=== PATIENT | female | born 1985 | race African-American/Black ===

== ENCOUNTER 2017-03-18 11:29 | Emergency (ER) | payer OTHER ==
[~2017-03-18] VITALS: Ht 160 cm; Wt 123.0 kg
[~2017-03-18 11:29] MED LIST: AF-MIGRAIN1 PO; ALDOMET250 MG OR; AMOXICILLIN500 MG PO; AUGMENTIN500 MG OR; AZITHROMYCIN250 MG PO; BACTRIM DS1 TAB PO; CHERATUSSIN PO; DIABETA2.5 MG OR; DIFLUCAN150 MG PO; DOXYCYCL HYC100 MG PO; FLONASE NASAL50 MCG; FLUCONAZOLE150 MG PO; KEFLEX500 MG OR; KLONOPIN1 MG PO; LUNESTA3 MG PO; METFORMIN500 M1 OR; METFORMIN500 M1 PO; MIRENA; MUCINEX D1 TAB OR; NAPROSYN500 MG PO; NO; NO MEDS; PHENTERMINE; PHENTERMINE37.5 M1 PO; PHENTERMINE37.5 MG PO; PRE-NATAL OR; PREDNISONE20 MG PO; PROMETHAZINE25 MG OR; ROBITUSSIN DM OR; TESSALON PER100 MG PO; VENTOLIN HFA IN; WATER PILL; ZPAK PO; [UNRECOGNIZED DRUG - REMARK]
[2017-03-18] MEDS ORDERED: OMEPRAZOLE10 MG PO (11:48)
[2017-03-18 15:13] VITALS: BP 165/81
== END 2017-03-18 15:26 | disposition home or self-care (01) | DRG 151 ==
LOC: ED 11:29
DX: R04.0 Epistaxis (principal)

== ENCOUNTER 2018-11-10 13:27 | Emergency (ER) | payer OTHER ==
[~2018-11-10] VITALS: Ht 160 cm; Wt 110.0 kg
[~2018-11-10 13:27] MED LIST changes: +OMEPRAZOLE10 MG PO
[2018-11-10 15:01] LABS: HEMATOCRIT 36.9 % (37.0-47.0); IMMATURE GRANULOCYTES 0.5 % (0.0-5.0); MEAN CELL VOLUME 84.8 fL CALC (80.0-100.0); MEAN CORPUSCULAR HGB 27.6 pG CALC (26.0-32.0); MEAN CORPUSCULAR HGB CONC 32.5 g/L CALC (32.0-36.0); NEUT# 9.62 thou/uL (2.00-7.15); RED BLOOD COUNT 4.35 mill/uL (4.20-5.60); RED CELL DISTRI WIDTH 13.6 % (11.5-15.5)
[2018-11-10 15:02] LABS: URINE BILIRUBIN - DIPSTICK NEGATIVE (NEGATIVE); URINE BLOOD DIPSTICK LARGE (NEGATIVE); URINE COLOR ORANGE; URINE GLUCOSE - DIPSTICK 250 mg/dL (NEGATIVE); URINE KETONE TRACE mg/dL (NEGATIVE); URINE LEUK ESTERASE TRACE (NEGATIVE); URINE PROTEIN - DIPSTICK 100 mg/dL (NEG-TRACE); URINE UROBILINOGEN - DIPSTICK >=8.0 E.U./dL (0.2)
[2018-11-10 15:05] LABS: URINE NITRITE - DIPSTICK POSITIVE (Negative)
[2018-11-10 15:13] LABS: URINE SQUAMOUS EPITHELIAL CELL MODERATE EPI/hpf (0-FEW)
[2018-11-10 15:25] LABS: ALBUMIN 4.3 g/dL (3.2-5.0); ALKALINE PHOSPHATASE 89 u/l (38-126); ANION GAP 10 (6-22 (CALC)); BILIRUBIN, TOTAL 0.4 mg/dL (0.0-1.4); BUN 8 mg/dL (7-17); BUN/CREATININE RATIO 11 (12-20 (CALC)); CARBON DIOXIDE 26 mmol/l (22-30); CHLORIDE 104 mmol/l (95-108); CREATININE 0.7 mg/dL (0.5-1.0); GFR > 60 ML/MIN (>=60 (CALC)); GFR FOR AFR.AMER. > 60 ML/MIN (>=60 (CALC)); POTASSIUM 3.5 mmol/l (3.5-5.1); SGOT/AST 24 u/l (14-36); SODIUM 137 mmol/l (137-146); TOTAL PROTEIN 7.7 g/dL (6.3-8.2)
[2018-11-10] MEDS ORDERED: KEFLEX500 M1 PO (15:36)
[2018-11-10] MEDS ORDERED: PYRIDIUM200 MG PO (15:36)
[2018-11-10] MEDS ORDERED: LISINOP/HCTZ1 TAB PO (16:23)
[2018-11-10] MEDS ORDERED: ATIVAN1 M1 PO (16:23)
[2018-11-10] MEDS ORDERED: AMBIEN10 MG PO (16:24)
[2018-11-10] MEDS ORDERED: DIFLUCAN150 MG PO (16:27)
[2018-11-10 16:29] VITALS: BP 155/85
== END 2018-11-10 16:36 | disposition home or self-care (01) | DRG 690 ==
LOC: ED 13:27
PROVIDERS: Emergency Medicine
DX: N39.0 Urinary tract infection, site not specified (principal); J06.9 Acute upper respiratory infection, unspecified; R10.31 Right lower quadrant pain; R19.7 Diarrhea, unspecified; R05 Cough; R30.0 Dysuria

== ENCOUNTER 2019-05-13 02:59 | Emergency (ER) | payer OTHER ==
[~2019-05-13] VITALS: Ht 160 cm; Wt 125.0 kg
[~2019-05-13 02:59] MED LIST changes: +AMBIEN10 MG PO; +ATIVAN1 M1 PO; +KEFLEX500 M1 PO; +LISINOP/HCTZ1 TAB PO; +PYRIDIUM200 MG PO
[2019-05-13] MEDS ORDERED: VOLTAREN - GENE75 MG PO (03:54)
[2019-05-13 04:15] VITALS: BP 158/75
== END 2019-05-13 04:15 | disposition home or self-care (01) | DRG 563 ==
LOC: ED 02:59
DX: S93.401A Sprain of unspecified ligament of right ankle, initial encounter (principal); S80.212A Abrasion, left knee, initial encounter; I10 Essential (primary) hypertension; F17.200 Nicotine dependence, unspecified, uncomplicated; W19.XXXA Unspecified fall, initial encounter; Y92.512 Supermarket, store or market as the place of occurrence of the external cause; Y99.9 Unspecified external cause status

== ENCOUNTER 2019-07-21 | Emergency (ER) | payer OTHER ==
[~2019-07-21] MED LIST changes: +VOLTAREN - GENE75 MG PO
--- NOTE | 2019-07-21 22:32 | NUR ---
BREATHING TREATMENT GIVEN.
[2019-07-21 22:38] LABS: URINE BILIRUBIN - DIPSTICK NEGATIVE (NEGATIVE); URINE BLOOD DIPSTICK NEGATIVE (NEGATIVE); URINE COLOR YELLOW; URINE GLUCOSE - DIPSTICK NEGATIVE (NEGATIVE); URINE KETONE NEGATIVE (NEGATIVE); URINE LEUK ESTERASE NEGATIVE (NEGATIVE); URINE NITRITE - DIPSTICK NEGATIVE (Negative); URINE PROTEIN - DIPSTICK 30 mg/dL (NEG-TRACE); URINE UROBILINOGEN - DIPSTICK 0.2 E.U./dL (0.2)
[2019-07-21 22:39] LABS: HEMATOCRIT 38.3 % (37.0-47.0); HEMOGLOBIN 12.1 g/dl (12.0-16.0); IMMATURE GRANULOCYTES 0.2 % (0.0-5.0); MEAN CELL VOLUME 83.4 fL CALC (80.0-100.0); MEAN CORPUSCULAR HGB 26.4 pG CALC (26.0-32.0); MEAN CORPUSCULAR HGB CONC 31.6 g/L CALC (32.0-36.0); NEUT# 5.53 thou/uL (2.00-7.15); RED BLOOD COUNT 4.59 mill/uL (4.20-5.60); RED CELL DISTRI WIDTH 13.8 % (11.5-15.5)
[2019-07-21 23:03] LABS: ALBUMIN 4.2 g/dL (3.2-5.0); ALKALINE PHOSPHATASE 100 u/l (38-126); ANION GAP 13 (6-22 (CALC)); BILIRUBIN, TOTAL 0.4 mg/dL (0.0-1.4); BUN 13 mg/dL (7-17); BUN/CREATININE RATIO 20 (12-20 (CALC)); CARBON DIOXIDE 23 mmol/l (22-30); CHLORIDE 105 mmol/l (95-108); CREATININE 0.7 mg/dL (0.5-1.0); GFR > 60 ML/MIN (>=60 (CALC)); GFR FOR AFR.AMER. > 60 ML/MIN (>=60 (CALC)); POTASSIUM 4.2 mmol/l (3.5-5.1); SGOT/AST 19 u/l (14-36); SODIUM 137 mmol/l (137-146); TOTAL PROTEIN 7.4 g/dL (6.3-8.2)
[2019-07-21 23:05] LABS: URINE SQUAMOUS EPITHELIAL CELL FEW EPI/hpf (0-FEW)
[2019-07-22] MEDS ORDERED: BROMFED D1 PO (02:01)
== END 2019-07-22 02:14 | disposition home or self-care (01) | DRG 866 ==
PROVIDERS: Family Medicine
DX: B34.9 Viral infection, unspecified (principal); J98.01 Acute bronchospasm; I10 Essential (primary) hypertension; F17.210 Nicotine dependence, cigarettes, uncomplicated

== ENCOUNTER 2020-02-05 23:24 | Emergency (ER) | payer OTHER ==
[~2020-02-05] VITALS: Ht 157.5 cm; Wt 127.3 kg
[~2020-02-05 23:24] MED LIST changes: +BROMFED D1 PO
[2020-02-06 00:37] LABS: HEMATOCRIT 40.5 % (37.0-47.0); IMMATURE GRANULOCYTES 0.4 % (0.0-5.0); MEAN CELL VOLUME 84.4 fL CALC (80.0-100.0); MEAN CORPUSCULAR HGB 27.1 pG CALC (26.0-32.0); MEAN CORPUSCULAR HGB CONC 32.1 g/dL CAL (32.0-36.0); NEUT# 4.33 thou/uL (2.00-7.15); RED BLOOD COUNT 4.8 mill/uL (4.20-5.60); RED CELL DISTRI WIDTH 14.2 % (11.5-15.5)
[2020-02-06 01:03] LABS: ALBUMIN 4.5 g/dL (3.2-5.0); ALKALINE PHOSPHATASE 71 u/l (38-126); BUN 10 mg/dL (7-17); BUN/CREATININE RATIO 13 (12-20 (CALC)); CARBON DIOXIDE 25 mmol/l (22-30); CHLORIDE 103 mmol/l (95-108); CREATININE 0.7 mg/dL (0.5-1.0); GFR > 60 ML/MIN (>=60 (CALC)); GFR FOR AFR.AMER. > 60 ML/MIN (>=60 (CALC)); SODIUM 137 mmol/l (137-146)
[2020-02-06 01:04] LABS: ANION GAP 12 (6-22 (CALC)); BILIRUBIN, TOTAL 0.6 mg/dL (0.0-1.4); POTASSIUM 3.2 mmol/l (3.5-5.1); SGOT/AST 34 u/l (14-36)
[2020-02-06 01:34] LABS: TSH, 3RD GENERATION 3.92 uIU/mL (0.47 - 4.68)
[2020-02-06] MEDS ORDERED: PROVERA10 MG PO (01:37)
[2020-02-06] MEDS ORDERED: AMBIEN10 MG PO (01:39)
[2020-02-06] MEDS ORDERED: WELLBUTRIN XL150 MG PO (01:40)
[2020-02-06] MEDS ORDERED: ATIVAN1 MG PO (01:40)
[2020-02-06] MEDS ORDERED: LISINOP/HCTZ1 TA2 PO (01:55)
[2020-02-06 02:05] VITALS: BP 182/114
== END 2020-02-06 02:05 | disposition home or self-care (01) | DRG 761 ==
LOC: ED 23:24
PROVIDERS: Family Medicine
DX: N92.0 Excessive and frequent menstruation with regular cycle (principal); I10 Essential (primary) hypertension; F17.200 Nicotine dependence, unspecified, uncomplicated

== ENCOUNTER 2020-02-17 12:38 | Emergency (ER) | payer OTHER ==
[~2020-02-17] VITALS: Ht 157.5 cm; Wt 127.0 kg
[~2020-02-17 12:38] MED LIST changes: +ATIVAN1 MG PO; +LISINOP/HCTZ1 TA2 PO; +PROVERA10 MG PO; +WELLBUTRIN XL150 MG PO
[2020-02-17] MEDS ORDERED: HEATHER0.35 MG PO (13:09)
[2020-02-17 13:57] LABS: URINE BILIRUBIN - DIPSTICK SMALL (NEGATIVE); URINE BLOOD DIPSTICK LARGE (NEGATIVE); URINE GLUCOSE - DIPSTICK NEGATIVE (NEGATIVE); URINE KETONE NEGATIVE (NEGATIVE); URINE LEUK ESTERASE NEGATIVE (NEGATIVE); URINE NITRITE - DIPSTICK NEGATIVE (Negative); URINE PROTEIN - DIPSTICK TRACE mg/dL (NEG-TRACE); URINE SPECIFIC GRAVITY 1.025; URINE UROBILINOGEN - DIPSTICK 0.2 E.U./dL (0.2)
[2020-02-17 13:58] LABS: URINE COLOR RED; URINE RBC 50-100 RBC/hpf (0-5)
[2020-02-17 14:12] LABS: HEMATOCRIT 39.7 % (37.0-47.0); MEAN CELL VOLUME 85.9 fL CALC (80.0-100.0); MEAN CORPUSCULAR HGB 28.1 pG CALC (26.0-32.0); MEAN CORPUSCULAR HGB CONC 32.7 g/dL CAL (32.0-36.0); PLATELET COUNT 284 thou/uL (130-400); RED BLOOD COUNT 4.62 mill/uL (4.20-5.60); RED CELL DISTRI WIDTH 13.7 % (11.5-15.5)
[2020-02-17 14:13] LABS: LYMPH% 29 % (15-41); MONO% 9 % (2-13); NEUT% 63 % (42-76)
[2020-02-17 14:15] LABS: ALBUMIN 4.7 g/dL (3.2-5.0); ALKALINE PHOSPHATASE 68 u/l (38-126); BUN 14 mg/dL (7-17); BUN/CREATININE RATIO 17 (12-20 (CALC)); CARBON DIOXIDE 25 mmol/l (22-30); CHLORIDE 104 mmol/l (95-108); CREATININE 0.8 mg/dL (0.5-1.0); GFR > 60 ML/MIN (>=60 (CALC)); GFR FOR AFR.AMER. > 60 ML/MIN (>=60 (CALC)); SGOT/AST 27 u/l (14-36); SODIUM 138 mmol/l (137-146); TOTAL PROTEIN 8.2 g/dL (6.3-8.2)
[2020-02-17 14:16] LABS: ANION GAP 13 (6-22 (CALC))
[2020-02-17 14:17] LABS: BILIRUBIN, TOTAL 0.3 mg/dL (0.0-1.4)
[2020-02-17 14:41] VITALS: BP 161/98
== END 2020-02-17 15:00 | disposition home or self-care (01) | DRG 761 ==
LOC: ED 12:38
PROVIDERS: Emergency Medicine
DX: N92.0 Excessive and frequent menstruation with regular cycle (principal); D25.9 Leiomyoma of uterus, unspecified; I10 Essential (primary) hypertension; F17.210 Nicotine dependence, cigarettes, uncomplicated

== ENCOUNTER 2020-05-15 11:52 | Emergency (ER) | payer OTHER ==
[~2020-05-15] VITALS: Ht 157.5 cm; Wt 102.0 kg
[~2020-05-15 11:52] MED LIST changes: +HEATHER0.35 MG PO
[2020-05-15] MEDS ORDERED: HYZAAR1 TAB PO (12:29)
[2020-05-15 12:37] LABS: HEMATOCRIT 39.8 % (37.0-47.0); HEMOGLOBIN 12.8 g/dl (12.0-16.0); IMMATURE GRANULOCYTES 0.3 % (0.0-5.0); MEAN CELL VOLUME 83.8 fL CALC (80.0-100.0); MEAN CORPUSCULAR HGB 26.9 pG CALC (26.0-32.0); MEAN CORPUSCULAR HGB CONC 32.2 g/dL CAL (32.0-36.0); NEUT# 3.46 thou/uL (2.00-7.15); RED BLOOD COUNT 4.75 mill/uL (4.20-5.60); RED CELL DISTRI WIDTH 14.3 % (11.5-15.5)
[2020-05-15] MEDS ORDERED: DEPO-PROVER150 MG/ML IM (12:40)
[2020-05-15 12:45] LABS: ALBUMIN 4.4 g/dL (3.2-5.0); ALKALINE PHOSPHATASE 71 u/l (38-126); ANION GAP 12 (6-22 (CALC)); BILIRUBIN, TOTAL 0.4 mg/dL (0.0-1.4); BUN 10 mg/dL (7-17); BUN/CREATININE RATIO 14 (12-20 (CALC)); CARBON DIOXIDE 25 mmol/l (22-30); CHLORIDE 106 mmol/l (95-108); CREATININE 0.7 mg/dL (0.5-1.0); GFR > 60 ML/MIN (>=60 (CALC)); GFR FOR AFR.AMER. > 60 ML/MIN (>=60 (CALC)); POTASSIUM 3.8 mmol/l (3.5-5.1); SGOT/AST 24 u/l (14-36); SODIUM 139 mmol/l (137-146); TOTAL PROTEIN 7.7 g/dL (6.3-8.2)
[2020-05-15 13:04] LABS: URINE BILIRUBIN - DIPSTICK NEGATIVE (NEGATIVE); URINE BLOOD DIPSTICK MODERATE (NEGATIVE); URINE COLOR YELLOW; URINE GLUCOSE - DIPSTICK NEGATIVE (NEGATIVE); URINE KETONE NEGATIVE (NEGATIVE); URINE LEUK ESTERASE NEGATIVE (NEGATIVE); URINE NITRITE - DIPSTICK NEGATIVE (Negative); URINE PROTEIN - DIPSTICK NEGATIVE (NEG-TRACE); URINE UROBILINOGEN - DIPSTICK 0.2 E.U./dL (0.2)
[2020-05-15 13:26] LABS: URINE EPITHELIAL CELLS FEW EPI/hpf (0-FEW)
[2020-05-15 14:21] VITALS: BP 156/86
== END 2020-05-15 14:30 | disposition home or self-care (01) | DRG 305 ==
LOC: ED 11:52
DX: I10 Essential (primary) hypertension (principal); F41.9 Anxiety disorder, unspecified; T46.5X6A Underdosing of other antihypertensive drugs, initial encounter; F17.200 Nicotine dependence, unspecified, uncomplicated; Z91.128 Patient's intentional underdosing of medication regimen for other reason

== ENCOUNTER 2020-09-07 | Observation (INO) | payer OTHER ==
[~2020-09-07] MED LIST changes: +DEPO-PROVER150 MG/ML IM; +HYZAAR1 TAB PO
[2020-09-07 16:38] LABS: GFR 57 ML/MIN (>=60 (CALC)); GFR FOR AFR.AMER. > 60 ML/MIN (>=60 (CALC))
[2020-09-07 16:42] LABS: HEMATOCRIT 39.7 % (37.0-47.0); HEMOGLOBIN 12.6 g/dl (12.0-16.0); IMMATURE GRANULOCYTES 0.3 % (0.0-5.0); MEAN CELL VOLUME 87.1 fL CALC (80.0-100.0); MEAN CORPUSCULAR HGB 27.6 pG CALC (26.0-32.0); MEAN CORPUSCULAR HGB CONC 31.7 g/dL CAL (32.0-36.0); NEUT# 4.37 thou/uL (2.00-7.15); RED BLOOD COUNT 4.56 mill/uL (4.20-5.60); RED CELL DISTRI WIDTH 15.7 % (11.5-15.5)
[2020-09-07 16:55] LABS: ALKALINE PHOSPHATASE 76 u/l (38-126); ANION GAP 13 (6-22 (CALC)); BILIRUBIN, TOTAL 0.5 mg/dL (0.0-1.4); BUN 21 mg/dL (7-17); BUN/CREATININE RATIO 19 (12-20 (CALC)); CARBON DIOXIDE 24 mmol/l (22-30); CHLORIDE 105 mmol/l (95-108); CREATININE 1.1 mg/dL (0.5-1.0); GFR 57 ML/MIN (>=60 (CALC)); GFR FOR AFR.AMER. > 60 ML/MIN (>=60 (CALC)); POTASSIUM 3.7 mmol/l (3.5-5.1); SGOT/AST 22 u/l (14-36); SODIUM 138 mmol/l (137-146); TOTAL PROTEIN 9.2 g/dL (6.3-8.2)
[2020-09-07 17:01] LABS: PROTHROMBIN TIME 9.9 SECONDS (9.0-12.5)
[2020-09-07 17:07] LABS: MYOGLOBIN 29 ng/mL (0 - 62)
[2020-09-07 18:48] LABS: URINE BILIRUBIN - DIPSTICK NEGATIVE (NEGATIVE); URINE BLOOD DIPSTICK LARGE (NEGATIVE); URINE COLOR YELLOW; URINE GLUCOSE - DIPSTICK NEGATIVE (NEGATIVE); URINE KETONE NEGATIVE (NEGATIVE); URINE LEUK ESTERASE NEGATIVE (NEGATIVE); URINE PH 5.5 (4.5-8.0); URINE PROTEIN - DIPSTICK NEGATIVE (NEG-TRACE); URINE UROBILINOGEN - DIPSTICK 0.2 E.U./dL (0.2)
[2020-09-07 18:50] LABS: URINE NITRITE - DIPSTICK NEGATIVE (Negative)
[2020-09-07 18:54] LABS: URINE SQUAMOUS EPITHELIAL CELL FEW EPI/hpf (0-FEW); URINE WBC 0-2 WBC/hpf (0-5)
[2020-09-07 20:30] VITALS: BP 186/96
[2020-09-07 22:15] VITALS: BP 178/105
[2020-09-08] VITALS: BP 155/97
[2020-09-08 04:00] VITALS: BP 145/90
[2020-09-08 07:13] LABS: HEMATOCRIT 36.3 % (37.0-47.0); HEMOGLOBIN 11.6 g/dl (12.0-16.0); MEAN CORPUSCULAR HGB 27.5 pG CALC (26.0-32.0); RED BLOOD COUNT 4.22 mill/uL (4.20-5.60); RED CELL DISTRI WIDTH 15.5 % (11.5-15.5)
[2020-09-08 07:15] VITALS: BP 148/98
[2020-09-08 07:37] LABS: ANION GAP 12 (6-22 (CALC)); BUN 16 mg/dL (7-17); BUN/CREATININE RATIO 19 (12-20 (CALC)); CARBON DIOXIDE 24 mmol/l (22-30); CHLORIDE 103 mmol/l (95-108); CREATININE 0.8 mg/dL (0.5-1.0); GFR > 60 ML/MIN (>=60 (CALC)); GFR FOR AFR.AMER. > 60 ML/MIN (>=60 (CALC)); HDL CHOLESTEROL 50 mg/dL (>=40); MAGNESIUM 2.1 mg/dL (1.6-2.3); POTASSIUM 3.7 mmol/l (3.5-5.1); SODIUM 136 mmol/l (137-146); TOTAL TRIGLYCERIDES 188 mg/dl (30-149); VLDL CHOLESTROL 38 mg/dl (1-41 (CALC))
[2020-09-08 07:50] LABS: CALCULATED LDLCHOLESTEROL 160 mg/dL (62-129 (CALC)); TOTAL CHOLESTEROL 248 mg/dl (0-199)
[2020-09-08 11:28] VITALS: BP 172/104
[2020-09-08 12:14] VITALS: BP 147/91
[2020-09-08 15:06] VITALS: BP 153/103
[2020-09-08] MEDS ORDERED: NORMODYNE/TRAN100 MG PO (17:11)
[2020-09-08] MEDS ORDERED: ADLT ASA LOW81 MG PO (17:11)
[2020-09-08] MEDS ORDERED: LIPITOR20 MG PO (17:12)
== END 2020-09-08 18:11 | disposition home or self-care (01) | DRG 305 ==
PROVIDERS: Emergency Medicine; Nurse Practitioner; ADMIT Internal Medicine
DX: I16.0 Hypertensive urgency (principal); I10 Essential (primary) hypertension; F41.9 Anxiety disorder, unspecified; E78.5 Hyperlipidemia, unspecified; F17.200 Nicotine dependence, unspecified, uncomplicated; E66.01 Morbid (severe) obesity due to excess calories; Z98.84 Bariatric surgery status; Z20.822 Contact with and (suspected) exposure to COVID-19
CPT/HCPCS: G0378; J1650; Q9967

== ENCOUNTER 2021-04-27 11:24 | Emergency (ER) | payer OTHER ==
[~2021-04-27] VITALS: Ht 157.5 cm; Wt 129.5 kg
[~2021-04-27 11:24] MED LIST changes: +ADLT ASA LOW81 MG PO; +LIPITOR20 MG PO; +NORMODYNE/TRAN100 MG PO
[2021-04-27] MEDS ORDERED: XANAX1 MG PO (11:48)
[2021-04-27 12:19] LABS: URINE BILIRUBIN - DIPSTICK NEGATIVE (NEGATIVE); URINE BLOOD DIPSTICK LARGE (NEGATIVE); URINE COLOR YELLOW; URINE GLUCOSE - DIPSTICK NEGATIVE (NEGATIVE); URINE KETONE NEGATIVE (NEGATIVE); URINE LEUK ESTERASE NEGATIVE (NEGATIVE); URINE PROTEIN - DIPSTICK NEGATIVE (NEG-TRACE); URINE SPECIFIC GRAVITY 1.015; URINE UROBILINOGEN - DIPSTICK 0.2 E.U./dL (0.2)
[2021-04-27 12:19] LABS: HEMATOCRIT 39.9 % (37.0-47.0); HEMOGLOBIN 12.7 g/dl (12.0-16.0); IMMATURE GRANULOCYTES 0.3 % (0.0-5.0); MEAN CELL VOLUME 87.1 fL CALC (80.0-100.0); MEAN CORPUSCULAR HGB 27.7 pG CALC (26.0-32.0); MEAN CORPUSCULAR HGB CONC 31.8 g/dL CAL (32.0-36.0); NEUT# 3.67 thou/uL (2.00-7.15); RED BLOOD COUNT 4.58 mill/uL (4.20-5.60); RED CELL DISTRI WIDTH 14.3 % (11.5-15.5)
[2021-04-27 12:23] LABS: URINE EPITHELIAL CELLS FEW EPI/hpf (0-FEW); URINE NITRITE - DIPSTICK NEGATIVE (Negative); URINE RBC 25-50 RBC/hpf (0-5)
[2021-04-27 12:36] LABS: ACT PARTIAL THROMBO TIME 22.7 SECONDS (20.0-32.5); ALBUMIN 4.4 g/dL (3.2-5.0); ALKALINE PHOSPHATASE 73 u/l (38-126); ANION GAP 12 (6-22 (CALC)); BILIRUBIN, TOTAL 0.8 mg/dL (0.0-1.4); BUN 13 mg/dL (7-17); BUN/CREATININE RATIO 17 (12-20 (CALC)); CARBON DIOXIDE 27 mmol/l (22-30); CHLORIDE 103 mmol/l (95-108); CREATININE 0.8 mg/dL (0.5-1.0); GFR > 60 ML/MIN (>=60 (CALC)); GFR FOR AFR.AMER. > 60 ML/MIN (>=60 (CALC)); INTERNATIONAL NORMALIZED RATIO 0.9 RATIO (0.7-1.3); POTASSIUM 3.8 mmol/l (3.5-5.1); PROTHROMBIN TIME 9.9 SECONDS (9.0-12.5); SGOT/AST 67 u/l (14-36); SODIUM 138 mmol/l (137-146); TOTAL PROTEIN 8.5 g/dL (6.3-8.2)
[2021-04-27 17:15] VITALS: BP 146/85
== END 2021-04-27 17:15 | disposition home or self-care (01) | DRG 305 ==
LOC: ED 11:24
DX: I10 Essential (primary) hypertension (principal); F41.9 Anxiety disorder, unspecified; F17.210 Nicotine dependence, cigarettes, uncomplicated
CPT/HCPCS: A9579; J2060

== ENCOUNTER 2022-02-10 15:23 | Observation (INO) | payer OTHER ==
[~2022-02-10] VITALS: Ht 157.5 cm; Wt 122.0 kg
[2022-02-10] VITALS (8 sets, daily range): BP systolic 73–137; BP diastolic 57–84
[~2022-02-10 15:23] MED LIST changes: +LOSARTAN/HCT1 TA2 PO; +XANAX1 MG PO
[2022-02-10 15:52] LABS: HEMATOCRIT 35.9 % (37.0-47.0); IMMATURE GRANULOCYTES 0.4 % (0.0-5.0); MEAN CORPUSCULAR HGB CONC 33.4 g/dL CAL (32.0-36.0); NEUT# 10.23 thou/uL (2.00-7.15); RED BLOOD COUNT 4.62 mill/uL (4.20-5.60); RED CELL DISTRI WIDTH 13.8 % (11.5-15.5)
[2022-02-10 15:53] LABS: MEAN CELL VOLUME 77.7 fL CALC (80.0-100.0)
[2022-02-10 16:03] LABS: ALBUMIN 4.7 g/dL (3.2-5.0); ALKALINE PHOSPHATASE 62 u/l (38-126); ANION GAP 15 (6-22 (CALC)); BILIRUBIN, TOTAL 0.5 mg/dL (0.0-1.4); BUN 9 mg/dL (7-17); BUN/CREATININE RATIO 10 (12-20 (CALC)); CARBON DIOXIDE 24 mmol/l (22-30); CHLORIDE 101 mmol/l (95-108); CREATININE 0.9 mg/dL (0.5-1.0); GFR FOR AFR.AMER. > 60 ML/MIN (>=60 (CALC)); GFR OTHER RACES > 60 ML/MIN (>=60 (CALC)); LIPASE 65 u/l (23-300); POTASSIUM 3.6 mmol/l (3.5-5.1); SGOT/AST 21 u/l (14-36); SODIUM 136 mmol/l (137-146); TOTAL PROTEIN 8.7 g/dL (6.3-8.2)
[2022-02-10] MEDS ORDERED: NORVASC PO (16:18)
[2022-02-10] MEDS ORDERED: OMEPRAZOLE DR40 MG PO (16:22)
[2022-02-10] MEDS ORDERED: LIPITOR20 MG PO (16:25)
[2022-02-10 18:05] LABS: URINE BILIRUBIN - DIPSTICK NEGATIVE (NEGATIVE); URINE BLOOD DIPSTICK TRACE-INTACT (NEGATIVE); URINE COLOR YELLOW; URINE GLUCOSE - DIPSTICK NEGATIVE (NEGATIVE); URINE KETONE NEGATIVE (NEGATIVE); URINE LEUK ESTERASE NEGATIVE (NEGATIVE); URINE NITRITE - DIPSTICK NEGATIVE (Negative); URINE PH 5.5 (4.5-8.0); URINE PROTEIN - DIPSTICK TRACE mg/dL (NEG-TRACE); URINE UROBILINOGEN - DIPSTICK 0.2 E.U./dL (0.2)
[2022-02-11 00:12] VITALS: BP 119/76
[2022-02-11 04:51] VITALS: BP 118/74
[2022-02-11 05:04] LABS: HEMATOCRIT 30.3 % (37.0-47.0); HEMOGLOBIN 10.1 g/dl (12.0-16.0); IMMATURE GRANULOCYTES 0.7 % (0.0-5.0); MEAN CELL VOLUME 78.3 fL CALC (80.0-100.0); MEAN CORPUSCULAR HGB 26.1 pG CALC (26.0-32.0); MEAN CORPUSCULAR HGB CONC 33.3 g/dL CAL (32.0-36.0); NEUT# 7.7 thou/uL (2.00-7.15); RED BLOOD COUNT 3.87 mill/uL (4.20-5.60); RED CELL DISTRI WIDTH 13.9 % (11.5-15.5)
[2022-02-11 05:41] LABS: ALKALINE PHOSPHATASE 54 u/l (38-126); ANION GAP 14 (6-22 (CALC)); BILIRUBIN, TOTAL 0.5 mg/dL (0.0-1.4); BUN 6 mg/dL (7-17); BUN/CREATININE RATIO 9 (12-20 (CALC)); CARBON DIOXIDE 22 mmol/l (22-30); CHLORIDE 104 mmol/l (95-108); CREATININE 0.7 mg/dL (0.5-1.0); GFR FOR AFR.AMER. > 60 ML/MIN (>=60 (CALC)); GFR OTHER RACES > 60 ML/MIN (>=60 (CALC)); MAGNESIUM 1.8 mg/dL (1.6-2.3); POTASSIUM 3.4 mmol/l (3.5-5.1); SGOT/AST 24 u/l (14-36); SODIUM 136 mmol/l (137-146)
[2022-02-11 05:53] LABS: ALBUMIN 3.5 g/dL (3.2-5.0); TOTAL PROTEIN 6.6 g/dL (6.3-8.2)
[2022-02-11 10:56] VITALS: BP 118/74
[2022-02-11] MEDS ORDERED: CARAFATE1 GM/10 ML PO (11:08)
== END 2022-02-11 14:34 | disposition home or self-care (01) | DRG 392 ==
LOC: ED 15:23 → ED-I 17:57 → ED 18:13 → MS2 18:14
PROVIDERS: Family Medicine; ADMIT Internal Medicine; ATTEND Internal Medicine
DX: A08.4 Viral intestinal infection, unspecified (principal); Z68.42 Body mass index [BMI] 45.0-49.9, adult; K21.9 Gastro-esophageal reflux disease without esophagitis; I10 Essential (primary) hypertension; F41.9 Anxiety disorder, unspecified; F17.200 Nicotine dependence, unspecified, uncomplicated; E78.00 Pure hypercholesterolemia, unspecified; E66.01 Morbid (severe) obesity due to excess calories; Z98.84 Bariatric surgery status; Z72.89 Other problems related to lifestyle; Z20.822 Contact with and (suspected) exposure to COVID-19
CPT/HCPCS: G0378; J0131; Q9967

== ENCOUNTER 2022-11-20 20:13 | Emergency (ER) | payer BC ==
[~2022-11-20] VITALS: Ht 157.5 cm; Wt 127.0 kg
[~2022-11-20 20:13] MED LIST changes: +CARAFATE1 GM/10 ML PO; +NORVASC PO; +OMEPRAZOLE DR40 MG PO
[2022-11-20 20:29] VITALS: BP 153/100
[2022-11-20 20:30] VITALS: BP 141/93
[2022-11-20 21:01] VITALS: BP 128/73
[2022-11-20 21:30] VITALS: BP 140/79
[2022-11-20 21:42] VITALS: BP 140/79
[2022-11-21] MEDS ORDERED: AMOXICILLIN500 MG PO (21:14)
[2022-11-21] MEDS ORDERED: TRAMADOL HCL50 MG PO (21:14)
== END 2022-11-20 21:42 | disposition home or self-care (01) | DRG 151 ==
LOC: ED 20:13
DX: R04.0 Epistaxis (principal); I10 Essential (primary) hypertension; F41.9 Anxiety disorder, unspecified; F17.200 Nicotine dependence, unspecified, uncomplicated

== ENCOUNTER 2022-11-21 20:20 | Emergency (ER) | payer BC ==
[~2022-11-21] VITALS: Ht 157.5 cm; Wt 94.5 kg
[2022-11-21 20:56] VITALS: BP 159/100
[2022-11-21] MEDS ORDERED: AMOXICILLIN500 MG PO (21:14)
[2022-11-21] MEDS ORDERED: TRAMADOL HCL50 MG PO (21:14)
== END 2022-11-21 22:03 | disposition home or self-care (01) | DRG 151 ==
LOC: ED 20:20
PROC: 2Y41X5Z Packing of Nasal Region using Packing Material (ICD-10-PCS; principal; 2022-11-21)
DX: R04.0 Epistaxis (principal); I10 Essential (primary) hypertension; F41.9 Anxiety disorder, unspecified; F17.200 Nicotine dependence, unspecified, uncomplicated